=== PATIENT | female | born 2000 | race American Indian/Alaskan Native ===

== ENCOUNTER 2020-12-06 21:09 | Emergency (ER) | payer OTHER ==
[2020-12-07 00:05] VITALS: BP 120/70
--- NOTE | 2020-12-07 00:37 | XRay Report ---
CHEST 1 VIEW INDICATION / CLINICAL INFORMATION: chestpain. FINDINGS: SUPPORT DEVICES: None. HEART / MEDIASTINUM: No significant abnormality. LUNGS / PLEURA: No significant pulmonary or pleural abnormality. No pneumothorax. ADDITIONAL FINDINGS: No significant additional findings. IMPRESSION: 1. No acute findings. Signer Name: Jovanny Schwartz MD Signed: 12/07/2020 12:32 AM Workstation Name: [id number]
--- NOTE | 2020-12-11 14:19 | Electrocardiograph Report ---
[facility] Test Date: 2020-12-06 Test Time: 21:15:49 Pat Name: ANGELITA JAVIER Department: Room: Gender: F Program Clerk: : [id number] Requested By: MAXX NATHAN Order Number: [id number] Reading MD: Bere Erickson Measurements Intervals [place] Rate: 79 P: 14 MN: 138 QRS: 77 QRSD: 94 T: 44 QT: 366 QTc: 419 Interpretive Statements Sinus rhythm No previous ECG available for comparison Electronically Signed On 12-11-2020 14:19:01 EDT by Bere Erickson
== END 2020-12-07 00:09 | disposition left against medical advice (07) ==
LOC: ED 21:09
DX: R07.89 Other chest pain (principal); Z53.21 Procedure and treatment not carried out due to patient leaving prior to being seen by health care provider
CPT/HCPCS: 71045; 93005